=== PATIENT | female | born 1980 | race Caucasian/White ===

== ENCOUNTER 2024-06-24 05:20 | Day surgery (SDC) | payer OTHER ==
[2024-06-21 09:19] VITALS: BMI 24.0
[2024-06-24] MEDS ORDERED: MIDAZOLAM HCL 2 MG/2 ML SINGLE DOSE VIAL ONE (13:38)
[2024-06-24] MEDS ORDERED: PROPOFOL 20 ML ONE (13:43)
[2024-06-24] MEDS ORDERED: SUCCINYLCHOLINE CHLORIDE 200 MG/10 ML SYRINGE ONE (13:43)
[2024-06-24] MEDS: CLINDAMYCIN 600 MG PREMIX BAG IVPB ONE (13:45)
[2024-06-24] MEDS ORDERED: oxyCODONE HCL 5 MG TABLET PO PRN ×2 (14:36)
[2024-06-24] MEDS ORDERED: ONDANSETRON 4 MG/2 ML VIAL IVPUSH PRN (14:36)
[2024-06-24] MEDS ORDERED: LACTATED RINGERS SOLUTION 1,000 ML IV SCH (14:45)
[2024-06-24 15:50] VITALS: RESP 16
[2024-06-24 16:15] VITALS: TEMP 97.5
[2024-06-24 16:25] VITALS: BP 106/58; PULSE 70
== END 2024-06-24 16:55 | disposition home or self-care (01) ==
LOC: JASU-SURG 05:20
PROVIDERS: ATTEND Obstetrics & Gynecology
PROC: 0UB98ZZ Excision of Uterus, Via Natural or Artificial Opening Endoscopic (ICD-10-PCS; principal; 2024-06-24 12:00)
DX: N92.1 Excessive and frequent menstruation with irregular cycle (principal); N84.0 Polyp of corpus uteri
CPT/HCPCS: 81025; 88305-TC; 94760